=== PATIENT | female | born 1975 | race Caucasian/White ===

== ENCOUNTER 2017-01-13 10:36 | Emergency (ER) | payer OTHER ==
--- NOTE | ~2017-01-13 | CT4 ---
[facility] A Service of [facility] RADIOLOGY TEXT RESULTS PATIENT: ELIEZER LOYOLA LOCATION: SED : 79 UNIT #: [id number] AGE: [address]: Bautista Andres MD SEX: F ORDER DR: [id number] [address] [address] [id number] E MR#: [id number] Acc #: [id number] NAME: ELIEZER LOYOLA : 1975 SEX: F STUDY DATE/TIME: 01/13/2017 11:02 UNIT: SED ROOM: STUDY DESCRIPTION: CT Abd and Pelv Wo Cont Attending Physician: Bautista Andres M.D. Ordering Physician: Bautista Andres M.D. Primary Care Physician: No Primary Care Physician MEDICAL IMAGING REPORT This report is preliminary unless electronic signature is present. EXAM CT abdomen and pelvis without contrast. HISTORY Abdominal pain and vomiting since yesterday. COMPARISON STUDIES 05/04/2016, 09/26/2015 TECHNIQUE Axial 5 mm images were obtained through the abdomen and pelvis without IV or oral contrast. This CT exam was performed with one or more of the following radiation dose reduction techniques: automatic exposure control, adjustment of mA and/or kV according to patient size, and iterative reconstruction. FINDINGS The lung bases are clear. The liver, spleen, pancreas, adrenal glands, and kidneys are normal in appearance. The gallbladder has been removed. The aorta is normal in size and there is no adenopathy. The bowel is normal. The uterus has been removed. There is a left ovarian cystic lesion. It is a unilocular water-density lesion measuring 3.5 cm in diameter. It is unchanged from 05/04/2016. The bladder is normal. The bones show mild degenerative changes. The left ovarian cystic lesion was also present 09/26/2015 and has not changed. IMPRESSION 1. No change in left ovarian cyst measuring about 3.5 cm in diameter. It is unchanged from the most recent study from 05/04/2016. 2. Previous hysterectomy and cholecystectomy. 3. Otherwise normal. [facility] A Service of [facility] RADIOLOGY TEXT RESULTS PATIENT: ELIEZER LOYOLA LOCATION: [facility] [place] : [birth year] UNIT #: [id number] AGE: [address]: Bautista Andres MD SEX: F ORDER DR: Dictated by... Parviz Bland M.D. THIS IS AN ELECTRONICALLY VERIFIED REPORT Parviz Bland M.D. at 01/13/2017 1:37 PM EMILY/ann TD: 01/13/2017 13:03 JOB #: [id number] MEDICAL IMAGING REPORT Page 1 of 1
[2017-01-13 10:36] LABS: URINE SOURCE CLEAN CATCH
[~2017-01-13 10:36] MED LIST: ALBUTEROL17 GM INH; AMITRIPTYLINE; ATENOLOL50 MG PO; BACTRIM DS TABL1 TA1 PO; CATAPRES0.1 M1 PO; CELEXA PO; CIPRO500 MG/5 M PO; CLEOCIN; CLEOCIN HCL300 M1 PO; CLONIDINE HCL0.1 MG PO; CLONIDINE PO; DIFLUCAN PO; DITROPAN5 MG DOB; FLEXERIL10 MG PO; GEODAN; GEODON60 MG PO; GEODON80 MG PO; HYDROCHLOROTHIA25 MG PO; KLONOPIN1 MG PO; LASIX20 MG PO; LITHIUM CARBON300 M2 PO; LORTAB 10-5001 EACH PO; LORTAB 5-325 M1 EACH PO; LORTAB 7.5-5001 TAB PO; METHAZOLAMIDE PO; MORGIDOX100 MG PO; MOTRIN400 M1; MOTRIN400 M1 PO; MOTRIN600 M1 PO; NAPROXEN PO; NEURONTIN800 MG PO; NO MEDICATIONS; PERCOCET 10/3251 TAB PO; PERCOCET 5-3251 TAB PO; PHENERGAN PO; PYRIDIUM PO; REMERON15 MG; SUBOXONE 8 MG-1 EACH SL; THORAZINE10 MG; TOPAMAX; TOPAMAX PO; TRAMADOL HCL50 M1 PO; TYLENOL #3 PO; ULTRAM PO; VISTARIL PO; ZOFRAN ODT4 MG PO; ZOLOFT; ZOLOFT100 MG PO
[2017-01-13 10:42] LABS: URINE APPEARANCE SL CLOUDY; URINE BLOOD 3+ (NEG); URINE COLOR YELLOW; URINE GLUCOSE NEG (NORM); URINE KETONE TRACE (NEG); URINE LEUKOCYTE ESTERASE NEG (NEG); URINE NITRATE NEG (NEG); URINE PH 5.5 (5-8); URINE PROTEIN 1+ (NEG); URINE SPECIFIC GRAVITY >=1.030 (1.003-1.035)
[2017-01-13 10:45] LABS: MICRO INDICATED? YES; URINE BILIRUBIN NEG (NEG)
[2017-01-13 10:52] LABS: AMPHETAMINE NEG (NEG); BARBITURATES NEG (NEG); BENZODIAZEPINES NEG (NEG); COCAINE NEG (NEG); MARIJUANA POS (NEG); OPIATES NEG (NEG); TRICYCLIC ANTIDEPRESSANTS NEG (NEG); U METHADONE NEG (NEG)
[2017-01-13 10:54] LABS: BASOPHIL# 0.1 X10e3 (0-0.3); BASOPHIL% 0.7 % (0-2.5); EOSINOPHIL# 0.1 X10e3 (0-0.7); EOSINOPHIL% 0.8 % (0.0-7.0); HEMOGLOBIN 15.6 gm/dL (12.0-16.0); LYMPHOCYTE# 2.1 X10e3 (1.0-3.5); LYMPHOCYTE% 19.1 % (17.0-45.0); MEAN CELL VOLUME 91.5 FL (83-96); MEAN CORPUSCULAR HEMOGLOBIN 31.1 PG (28-34); MEAN CORPUSCULAR HGB CONC 33.9 g/dL (30-36); MEAN PLATELET VOLUME 8.6 FL (6.5-11.5); MONOCYTE# 0.9 X10e3 (0-1.0); NEUTROPHIL# 7.9 X10e3 (1.5-7.1); NEUTROPHIL% 71.4 % (40-75); PLATELET COUNT 153 X10e3 (140-420); RED BLOOD COUNT 5.03 X10e (3.90-5.30); RED CELL DISTRIBUTION WIDTH 13.2 % (11.0-15.5); WHITE BLOOD COUNT 11.1 X10e3 (4.0-10.5)
[2017-01-13 10:56] LABS: URINE RBC 25-50 /[HPF] (0-2)
[2017-01-13 10:57] LABS: URINE BACTERIA NEG (NEG); URINE SQUAMOUS EPITHELIAL CELL MANY /[HPF]; URINE WBC 0-2 /[HPF] (0-5)
[2017-01-13 11:00] LABS: DIFF IND NO
[2017-01-13 11:14] LABS: ALBUMIN SERUM 4.4 g/dL (3.5-5.0); BILIRUBIN, DIRECT 0.1 mg/dL (0.0-0.2); BILIRUBIN,INDIRECT 0.5 mg/dL (0.0-0.9); BILIRUBIN,TOTAL 0.6 mg/dL (0.2-2.0); BUN/CREATININE RATIO 15.71; CALCIUM SERUM 8.8 mg/dL (8.4-10.2); CREATININE SERUM 0.7 mg/dL (0.6-1.4); GLOM FILT RATE Estimated 109.1 mL/min (>60); POTASSIUM 3.4 mmol/L (3.5-5.1)
== END 2017-01-13 12:46 | disposition home or self-care (01) ==
LOC: SED 10:36
PROVIDERS: Emergency Medicine
DX: N83.202 Unspecified ovarian cyst, left side (principal); F17.200 Nicotine dependence, unspecified, uncomplicated; Z79.899 Other long term (current) drug therapy; Z90.710 Acquired absence of both cervix and uterus; Z88.0 Allergy status to penicillin; Z88.1 Allergy status to other antibiotic agents; Z88.5 Allergy status to narcotic agent; Z88.8 Allergy status to other drugs, medicaments and biological substances
CPT/HCPCS: 36415; 74176; 80048; 80076; 80307; 81003; 82150; 83690; 84703; 85025; 96361; 96374; 96375; 99284; J1885; J2405

== ENCOUNTER 2017-05-29 10:06 | Emergency (ER) | payer OTHER ==
[~2017-05-29] VITALS: Ht 175.3 cm; Wt 61.7 kg
== END 2017-05-29 16:26 | disposition home or self-care (01) ==
LOC: CED 10:06
DX: R51 Headache (principal); Z88.1 Allergy status to other antibiotic agents; Z88.8 Allergy status to other drugs, medicaments and biological substances; Z88.0 Allergy status to penicillin; Z88.5 Allergy status to narcotic agent
CPT/HCPCS: 96361; 96374; 96375; 99284; J1200; J1885; J2765